=== PATIENT | male | born 1970 ===

== ENCOUNTER 2018-03-17 09:44 | Emergency (ER) | payer BC ==
--- NOTE | 2018-03-17 10:28 | UC ---
Dental HPI - HPI Summary HPI Summary: started 1-2 weeks ago with Upper L toothache (mild), over week got swelling on L cheek, started taking amoxil left over at home, no better after a week. know' s he has a bad tooth there - History of Current Complaint Chief Complaint: UCDentalProblem Stated Complaint: DENTAL COMPLAINT Time Seen by Provider: 03/17/18 10:12 Hx Obtained From: Patient Onset/Duration: Gradual Onset Severity: Mild Pain Intensity: 1 Aggravating Factor(s): Nothing Alleviating Factor(s): Nothing Related History: Swelling - Allergies/Home Medications Allergies/Adverse Reactions: Allergies Allergy/AdvReac Type Severity Reaction Status Date / Time No Known Allergies Allergy Verified 03/17/18 10:03 PMH/Surg Hx/FS Hx/Imm Hx Previously Healthy: Yes - Surgical History Surgical History: Yes Surgery Procedure, Year, and Place: lt leg repair with hardwear - Family History Known Family History: Positive: None Negative: Hypertension, Diabetes - Social History Occupation: Employed Full-time Lives: With Family Alcohol Use: Daily Substance Use Type: None Smoking Status (MU): Current Some Day Smoker Type: Cigarettes Cessation Counseling: Patient Advised to Stop Review of Systems All Other Systems Reviewed And Are Negative: Yes Constitutional: Positive: Negative. Negative: Fever ENT: Positive: Dental Pain Respiratory: Positive: Negative Cardiovascular: Positive: Negative Neurological: Positive: Negative Psychological: Positive: Negative Is Patient Immunocompromised?: No Physical Exam Triage Information Reviewed: Yes Appearance: Well-Appearing, No Pain Distress, Well-Nourished Vital Signs: Initial Vital Signs Temp 97.4 F 03/17/18 09:57 Pulse 92 03/17/18 09:57 Resp 18 03/17/18 09:57 BP 156/99 03/17/18 09:57 Pulse Ox 96 03/17/18 09:57 Vital Signs Reviewed: Yes Eyes: Positive: Conjunctiva Clear ENT: Positive: Pharynx normal Dental: Positive: Gross Decay/Caries @, Dental Fracture @, Abscess @. Negative : Cellulitis @ - L upper 1st molar, Cervical Lymphadenopathy Neck: Positive: No Lymphadenopathy Respiratory Exam: Normal Cardiovascular Exam: Normal Neurological Exam: Normal Psychological Exam: Normal Skin Exam: Normal Dental Complaint Course/Dx - Differential Dx/Diagnosis Differential Diagnosis/Dx: Dental Abscess, Dental Caries, Fractured Tooth Provider Diagnosis: Dental abscess Discharge - Sign-Out/Discharge Documenting (check all that apply): Patient Departure All imaging exams completed and their final reports reviewed: No Studies - Discharge Plan Condition: Stable Disposition: HOME Prescriptions: Clindamycin Cap(NF) [Clindamycin Cap 300 mg Cap(NF)] 300 mg PO Q6H #28 cap Patient Education Materials: Dental Abscess (ED) Referrals: No Primary Care Phys,NOPCP [Primary Care Provider] - Additional Instructions: start clindamycin antibiotic and take as directed use ibuprofen 600-800mg every 6 hours as needed for pain You should follow-up with dentist as soon as possible for further treatment - Billing Disposition and Condition Condition: STABLE Disposition: Home
== END 2018-03-17 10:35 | disposition home or self-care (01) ==
LOC: UCEAST 09:44
DX: K04.7 Periapical abscess without sinus (principal); F17.210 Nicotine dependence, cigarettes, uncomplicated
CPT/HCPCS: 99202; G0463